=== PATIENT | male | born 1970 | race Caucasian/White ===

== ENCOUNTER 2021-04-13 18:33 | Observation (INO) ==
[2021-04-13] MEDS ORDERED: 0.9 % Sodium Chloride 1,000 ML IVC ONE (18:56)
[2021-04-13] MEDS ORDERED: *HR* Metoprolol 5 MG/5 ML VIAL IVP STA (19:07)
[2021-04-13 19:16] LABS: Basophils # 0.1 K/mcL (0.0-0.2); Basophils % 0.4 %; Hematocrit 45.8 % (37.5-50.1); Hemoglobin 15.2 g/dL (12.9-16.9); Immature Granulocytes % 0.2 % (0-4); Lymphocytes # 10.3 K/mcL (0.6-4.6); Mean Corpuscular HGB Conc 33.2 g/dL (31.6-35.5); Mean Corpuscular Hemoglobin 30.8 pg (28.0-33.3); Mean Corpuscular Volume 92.7 fL (83.0-100.0); Mean Platelet Volume 11.4 fL (9.4-12.4); Monocytes # 0.5 K/mcL (0.0-1.3); Monocytes % 3.9 %; Neutrophils # 2.2 K/mcL (1.6-8.9); Platelet Count 158 K/mcL (140-400); Red Blood Count 4.94 M/mcL (4.19-5.50); Red Cell Distribution Width 14.6 % (11.5-14.5); Segmented Neutrophils % 16.5 %
[2021-04-13 19:35] LABS: Platelet Estimate Normal (Normal); Smudge Cells Present (Not Present)
[2021-04-13 19:37] LABS: BUN/Creatinine Ratio 12 (6-26); Blood Urea Nitrogen 11 mg/dL (6-20); Calcium 9.8 mg/dL (8.6-10.3); Carbon Dioxide 23 mEq/L (23-29); Chloride 102 mEq/L (98-107); Glucose 88 mg/dL (70-105); Osmolality,Calculated 283 (280-300); Potassium 3.8 mEq/L (3.5-5.1); Sodium 137 mEq/L (136-145); eGFR For African Americans > 60 (> 60); eGFR For Non-African Americans > 60 (> 60)
[2021-04-13 19:38] LABS: Troponin I < 0.03 ng/mL (< 0.04)
[2021-04-13] MEDS ORDERED: Naloxone 0.4 MG/ML INJ IVP PRN (21:22)
[2021-04-13 21:33] LABS: Adenovirus Not Detected (Not Detect); Bordetella Pertussis Not Detected (Not Detect); Chlamydophila pneumoniae Not Detected (Not Detect); Coronavirus 229E Not Detected (Not Detect); Coronavirus HKU1 Not Detected (Not Detect); Coronavirus NL63 Not Detected (Not Detect); Coronavirus OC43 Not Detected (Not Detect); Human Metapneumovirus Not Detected (Not Detect); Human Rhinovirus/Enterovirus Not Detected (Not Detect); Influenza A Subtype 2009 H1 Not Detected (Not Detect); Influenza B Not Detected (Not Detect); Mycoplasma pneumoniae Not Detected (Not Detect); Parainfluenza Virus 1 Not Detected (Not Detect); Parainfluenza Virus 2 Not Detected (Not Detect); Parainfluenza Virus 3 Not Detected (Not Detect); Parainfluenza Virus 4 Not Detected (Not Detect); Respiratory Syncytial Virus Not Detected (Not Detect); SARS-CoV-2 Not Detected (Not Detect)
[2021-04-13] MEDS ORDERED: Perflutren Lipid Microsphere 1.3 ML in 0.9 % Sodium Chloride 8.7 ML IVP PRN (22:07)
[2021-04-13] MEDS ORDERED: *HR* Metoprolol 5 MG/5 ML VIAL IVP PRN (22:45)
[2021-04-14] MEDS ORDERED: *HR* Metoprolol 5 MG/5 ML VIAL IVP SCH
[2021-04-14 00:34] LABS: Red Blood Count 4.41 M/mcL (4.19-5.50); Red Cell Distribution Width 14.6 % (11.5-14.5)
[2021-04-14 00:36] LABS: Hematocrit 41.2 % (37.5-50.1); Hemoglobin 13.6 g/dL (12.9-16.9); Immature Platelets 5.4 % (1.1-6.1); Mean Corpuscular Hemoglobin 30.8 pg (28.0-33.3); Mean Corpuscular Volume 93.4 fL (83.0-100.0); Mean Platelet Volume 11.2 fL (9.4-12.4); Platelet Count 134 K/mcL (140-400); White Blood Count 10.7 K/mcL (4.3-11.1)
[2021-04-14 00:57] LABS: Albumin 3.4 g/dL (3.5-5.7); Albumin/Globulin Ratio 1.2 (1.1-2.2); Bilirubin,Direct 1.1 mg/dL (0.0-0.2); Bilirubin,Indirect 0.6 mg/dL (0.0-1.0); Bilirubin,Total 1.7 mg/dL (0.3-1.0); Globulin 2.8 g/dL (2.4-3.5); Total Protein 6.2 g/dL (6.4-8.9)
[2021-04-14 00:59] LABS: BUN/Creatinine Ratio 16 (6-26); Blood Urea Nitrogen 12 mg/dL (6-20); Calcium 8.7 mg/dL (8.6-10.3); Carbon Dioxide 23 mEq/L (23-29); Chloride 106 mEq/L (98-107); Chol/HDL Ratio 4.1 (0-4.9); Cholesterol 148 mg/dL (< 200); Glucose 124 mg/dL (70-105); HDL Cholesterol 36 mg/dL (40-59); LDL Cholesterol,Calculated 76 mg/dL (< 100); Osmolality,Calculated 285 (280-300); Potassium 3.7 mEq/L (3.5-5.1); Sodium 137 mEq/L (136-145); Triglycerides 181 mg/dL (< 150); Troponin I < 0.03 ng/mL (< 0.04); eGFR For African Americans > 60 (> 60); eGFR For Non-African Americans > 60 (> 60)
[2021-04-14 01:56] LABS: Hepatitis B Surface Antigen Nonreactive (Nonreactive)
[2021-04-14 02:26] LABS: Hepatitis B Core IgM Nonreactive (Nonreactive)
[2021-04-14 02:27] LABS: Hepatitis C Virus Antibody Nonreactive (Nonreactive)
[2021-04-14] MEDS ORDERED: Acetaminophen 325 MG TABLET PO PRN (03:43)
[2021-04-14 03:44] LABS: Hepatitis A Antibody IgM Nonreactive (Nonreactive)
[2021-04-14] MEDS ORDERED: Isovue-370 500 ML BOTTLE IVP ONE (08:46)
[2021-04-14 11:29] LABS: Nucleated Red Blood Cells 0.3 /100 WBC (0)
[2021-04-14 12:03] LABS: Lymphocytes # 6.9 K/mcL (0.6-4.6); Monocytes # 2.4 K/mcL (0.0-1.3); Neutrophils # 1.5 K/mcL (1.6-8.9)
[2021-04-14 12:04] LABS: Reactive Lymphocytes Present (Not Present); Smudge Cells Present (Not Present)
[2021-04-14 12:05] LABS: Platelet Estimate Slight Decrease (Normal)
[2021-04-14] MEDS ORDERED: Ondansetron 4 MG/2 ML VIAL IVP PRN ×2 (14:53→16:18)
[2021-04-14] MEDS: Aspirin 81 MG TAB.CHEW PO SCH (15:10)
[2021-04-14] MEDS ORDERED: *HR* FentaNYL (PF) 100 MCG/2 ML VIAL IVP PRN (16:18)
[2021-04-14 16:35] LABS: Bilirubin,Urine Negative (Negative); Blood,Urine Negative (Negative); Clarity,Urine Clear (Clear); Color,Urine Yellow (Yellow); Glucose,Urine (UA) Normal (Normal); Ketones,Urine 10 mg/dL (Negative); Leukocyte Esterase,Urine Negative (Negative); Nitrite,Urine Negative (Negative); Protein,Urine Trace mg/dL (Neg-Trace); Specific Gravity,Urine > 1.030 (1.010-1.025); Urobilinogen,Urine Normal (Normal)
[2021-04-14] MEDS ORDERED: *HR* FentaNYL (PF) 100 MCG/2 ML VIAL ONE (16:38)
[2021-04-14] MEDS ORDERED: *HR* Midazolam HCl 2 MG/2 ML VIAL ONE (16:38)
[2021-04-14] MEDS ORDERED: Lidocaine -MPF 2% 2 ML VIAL ONE (16:38)
[2021-04-14] MEDS ORDERED: *HR* Propofol 200 MG/20 ML VIAL IVP ONE (16:38)
[2021-04-14] MEDS ORDERED: *HR* Succinylcholine 200 MG/10 ML VIAL IVP ONE (16:38)
[2021-04-14] MEDS ORDERED: *HR* Rocuronium Bromide 50 MG/5 ML VIAL ONE (16:38)
[2021-04-14] MEDS ORDERED: Isovue-300 50ML VIAL ONE (17:07)
[2021-04-14] MEDS ORDERED: CefOXitin 1,000 MG VIAL ONE (17:07)
[2021-04-14] MEDS ORDERED: Acetaminophen IV 1,000 MG/100 ML BAG IVPB ONE (17:27)
[2021-04-14] MEDS ORDERED: Lidocaine -MPF 4% 5 ML AMPUL ONE (17:29)
[2021-04-14] MEDS ORDERED: CefOXitin 2,000 MG VIAL ONE (17:34)
[2021-04-14] MEDS ORDERED: Ondansetron 4 MG/2 ML VIAL ONE (18:13)
[2021-04-14] MEDS ORDERED: Ketorolac 30 MG/ML VIAL ONE (18:25)
[2021-04-14] MEDS ORDERED: Neostigmine Methylsulfate 3 MG/3 ML SYRINGE ONE (18:30)
[2021-04-14] MEDS ORDERED: *HR* HYDROMORPHONE 2 MG/ML VIAL ONE (18:39)
[2021-04-14] MEDS: *HR* HYDROmorphone PF 0.5 MG/0.5 ML SYRINGE IVP PRN ×2 (18:58→19:08)
[2021-04-14] MEDS ORDERED: 0.9 % Sodium Chloride Mini Bag 100 ML ONE (23:55)
[2021-04-15] MEDS: Piperacillin/Tazobactam 3.375 GM in 0.9 % Sodium Chloride Mini Bag 100 ML IVPB SCH ×3 (00:33→07:55)
[2021-04-15 05:20] LABS: Alanine Aminotransferase 247 Units/L (7-52); Albumin 3.4 g/dL (3.5-5.7); Albumin/Globulin Ratio 1.2 (1.1-2.2); Alkaline Phosphatase 271 Units/L (34-104); Aspartate Amino Transferase 204 Units/L (13-39); BUN/Creatinine Ratio 20 (6-26); Bilirubin,Total 1.3 mg/dL (0.3-1.0); Blood Urea Nitrogen 16 mg/dL (6-20); Calcium 8.1 mg/dL (8.6-10.3); Carbon Dioxide 23 mEq/L (23-29); Chloride 104 mEq/L (98-107); Globulin 2.9 g/dL (2.4-3.5); Glucose 154 mg/dL (70-105); Magnesium 1.8 mg/dL (1.6-2.6); Osmolality,Calculated 284 (280-300); Phosphorous 3.6 mg/dL (2.7-4.5); Potassium 4.3 mEq/L (3.5-5.1); Sodium 135 mEq/L (136-145); Total Protein 6.3 g/dL (6.4-8.9); eGFR For African Americans > 60 (> 60); eGFR For Non-African Americans > 60 (> 60)
[2021-04-15] MEDS: Famotidine 20 MG/2 ML VIAL IVP SCH ×2 (06:21→17:57)
[2021-04-15] MEDS: 0.9 % Sodium Chloride 1,000 ML IVC SCH ×2 (07:10→07:54)
[2021-04-15] MEDS: Aspirin 81 MG TAB.CHEW PO SCH (07:54)
[2021-04-15] MEDS ORDERED: GI Cocktail 40 ML EACH PO ONE (09:26)
[2021-04-15] MEDS: Pantoprazole 40 MG VIAL IVP SCH ×2 (12:44→20:09)
[2021-04-15] MEDS ORDERED: Ketorolac 30 MG/ML VIAL IVP ONE (20:47)
[2021-04-16] MEDS: Pantoprazole 40 MG VIAL IVP SCH (05:28)
[2021-04-16] MEDS: Famotidine 20 MG/2 ML VIAL IVP SCH (05:29)
[2021-04-16 06:01] LABS: Red Cell Distribution Width 15.3 % (11.5-14.5)
[2021-04-16 06:03] LABS: Hematocrit 37.7 % (37.5-50.1); Immature Platelets 8.1 % (1.1-6.1); Mean Corpuscular HGB Conc 31.8 g/dL (31.6-35.5); Mean Corpuscular Hemoglobin 30.2 pg (28.0-33.3); Mean Corpuscular Volume 94.7 fL (83.0-100.0); Mean Platelet Volume 11.7 fL (9.4-12.4); Platelet Count 126 K/mcL (140-400); Red Blood Count 3.98 M/mcL (4.19-5.50); White Blood Count 7.2 K/mcL (4.3-11.1)
[2021-04-16 06:18] LABS: Alanine Aminotransferase 230 Units/L (7-52); Albumin 3.2 g/dL (3.5-5.7); Albumin/Globulin Ratio 1.2 (1.1-2.2); Alkaline Phosphatase 254 Units/L (34-104); Aspartate Amino Transferase 198 Units/L (13-39); BUN/Creatinine Ratio 15 (6-26); Bilirubin,Total 1.2 mg/dL (0.3-1.0); Blood Urea Nitrogen 14 mg/dL (6-20); Carbon Dioxide 25 mEq/L (23-29); Chloride 104 mEq/L (98-107); Globulin 2.7 g/dL (2.4-3.5); Glucose 93 mg/dL (70-105); Magnesium 1.8 mg/dL (1.6-2.6); Osmolality,Calculated 280 (280-300); Phosphorous 2.6 mg/dL (2.7-4.5); Potassium 3.7 mEq/L (3.5-5.1); Sodium 135 mEq/L (136-145); Total Protein 5.9 g/dL (6.4-8.9); eGFR For African Americans > 60 (> 60); eGFR For Non-African Americans > 60 (> 60)
[2021-04-16 06:44] LABS: Lymphocytes # 4.9 K/mcL (0.6-4.6); Monocytes # 0.3 K/mcL (0.0-1.3); Platelet Estimate Slight Decrease (Normal); Reactive Lymphocytes Present (Not Present)
[2021-04-16] MEDS: Aspirin 81 MG TAB.CHEW PO SCH (07:48)
[2021-04-16 10:42] VITALS: BP 123/87; PULSE 50; TEMP 97.9; O2SAT 96
== END 2021-04-16 11:13 | disposition home or self-care (01) ==
LOC: 3BNU 18:33 → EMEROOARM 18:33 → SUATTDRO 20:36 → 3BNU 21:31
PROVIDERS: ADMIT Student in an Organized Health Care Education/Training Program; ATTEND Internal Medicine